=== PATIENT | male | born 1940 | race Caucasian/White ===

== ENCOUNTER → 2016-10-15 13:57 | Outpatient (CLI) | payer MEDICARE | END | disposition home or self-care (01) | LOC: D.MRI 13:57 | DX: M25.512 Pain in left shoulder (principal) ==

== ENCOUNTER → 2016-12-24 15:41 | Outpatient (CLI) | payer MEDICARE | END | disposition home or self-care (01) | LOC: D.LABREF 15:41 | DX: Z80.0 Family history of malignant neoplasm of digestive organs (principal) ==

== ENCOUNTER 2017-10-13 00:55 | Emergency (ER) | payer MEDICARE, BC ==
[~2017-10-13] VITALS: Ht 172.7 cm; Wt 65.8 kg
[2017-10-13 00:57] VITALS: Ht 172.7 cm; Wt 65.8 kg
[2017-10-13] MEDS ORDERED: OMEPRAZOLE40 MG PO (00:58)
[2017-10-13] MEDS ORDERED: PROPECIA1 MG PO (00:58)
[2017-10-13] MEDS ORDERED: NAPROXEN250 MG PO (00:58)
[2017-10-13 01:29] LABS: APPEARANCE HAZY (CLEAR); BILIRUBIN NEGATIVE (NEGATIVE); COLOR YELLOW (YELLOW); GLUCOSE NEGATIVE (NEGATIVE); KETONE SMALL mg/dL (NEGATIVE); NITRITE NEGATIVE (NEGATIVE); PROTEIN NEGATIVE (NEGATIVE); UROBILINOGEN NORMAL (NORMAL)
[2017-10-13 01:30] LABS: BACTERIA NONE SEEN /hpf (NONE SEEN); EPITHELIAL CELLS RARE /hpf (0-5); RED CELLS - URINE 25-50 /hpf (0-5); WHITE CELLS - URINE RARE /hpf (0-5)
[2017-10-13 02:44] VITALS: BP 132/69
== END 2017-10-13 02:50 | disposition home or self-care (01) ==
LOC: D.ER 00:55
PROVIDERS: Emergency Medicine
DX: N23 Unspecified renal colic (principal)

== ENCOUNTER 2017-10-26 01:07 | Emergency (ER) | payer MEDICARE, BC ==
[~2017-10-26] VITALS: Ht 162.6 cm; Wt 65.9 kg
[~2017-10-26 01:07] MED LIST: NAPROXEN250 MG PO; OMEPRAZOLE40 MG PO; PROPECIA1 MG PO
[2017-10-26 01:09] VITALS: Ht 162.6 cm; Wt 65.9 kg
[2017-10-26] MEDS ORDERED: NORCO 7.5/325 T1 TA1 PO (01:55)
[2017-10-26 02:31] VITALS: BP 138/70
== END 2017-10-26 02:31 | disposition home or self-care (01) ==
LOC: D.ER 01:07
DX: M48.32 Traumatic spondylopathy, cervical region (principal); N42.9 Disorder of prostate, unspecified

== ENCOUNTER → 2017-10-28 13:53 | Outpatient (CLI) | payer MEDICARE, BC ==
[2017-10-26 01:09] VITALS: BMI 24.9
[~2017-10-28 13:53] MED LIST changes: +NORCO 7.5/325 T1 TA1 PO
== END | disposition home or self-care (01) ==
LOC: D.MRI 13:53
DX: M54.2 Cervicalgia (principal)

== ENCOUNTER 2017-12-18 05:20 | Inpatient (IN) | payer MEDICARE, BC ==
[2017-12-17 13:33] LABS: BASOPHILS 0.6 % (0-2); EOSINOPHILS 6.1 % (0-7); HEMATOCRIT 40.6 % (42.0-54.0); LYMPHOCYTES 21.5 % (15-50); MCH 31.5 pg (26.0-34.0); MCHC 34.5 g/dL (31.0-37.0); MCV 91.2 fL (80.0-100.0); MEAN PLATELET VOLUME 9.4 fL (7.4-10.4); MONOCYTES 9.3 % (2-11); NEUTROPHILS 62.5 % (40-80); PLATELET COUNT 273 10x3/uL (130-400); RBC 4.45 10x6/uL (4.20-6.10); RDW 14.4 % (11.5-14.5); WBC 8.2 10x3/uL (4.8-10.8)
[2017-12-17 13:51] LABS: INR 1.01 (0.85-1.17); PROTIME 12.9 SECONDS (11.6-15.0)
[2017-12-17 13:52] LABS: APTT 31.7 SECONDS (22.8-39.4)
[2017-12-18] VITALS (19 sets, daily range): BP systolic 103–150; BP diastolic 40–80; BMI 25.8
[~2017-12-18] VITALS: Ht 162.6 cm; Wt 68.2 kg
--- NOTE | ~2017-12-18 | OP ---
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 PROCEDURES: Anterior cervical discectomy and fusion at C4-C5 and C5-C6 with removal of osteophytes. Zavation spine, anterior cervical plate and screws. A separate PEEK interbody cages at C4-C5 and C5-C6. Nayeli bone stem cells. SURGEON: Irina Hernandez MD DESCRIPTION OF TECHNIQUE: After induction of general endotracheal anesthesia, the patient was positioned supine on the operating table. Neck was prepped and draped in the usual sterile fashion. Fluoroscopic x-ray and freer localized the C4-C5 interspace. Next, a transverse skin incision was carried out from the midline to the sternocleidomastoid muscle and using a blunt and sharp dissection with the Metzenbaum scissors, I proceeded in avascular plane medial to the carotid sheath. C4-C5 and C5-C6 interspaces were identified with fluoroscopic x-ray and spinal needle. The longus colli muscles were elevated from bodies of C4, C5 and C6. Osteophytes were drilled away anteriorly with a Midas-Charles drill and Adson rongeurs. Next, a [place] distracting pins were placed by the C4, C5 and C6. Disc space was then incised at each interspace with #11 blade and the disc material was removed with pituitary rongeurs and curettes. Osteophytes were drilled away posteriorly with Midas-Charles drill and microscope. The posterior longitudinal ligament was removed with Cloward rongeurs. At each level, the dura was decompressed well at C4-C5 and C5-C6. PEEK interbody cages were placed at C4-C5 and C5-C6. A separate anterior cervical plate and screws used to span the C4-C5 and C5-C6 interspaces. Locking cams were tightened down over the screw heads. Meticulous hemostasis was maintained throughout the wound. The wound was irrigated with copious amounts of Ancef irrigant solution. The platysma was closed with interrupted 3-0 Vicryl suture. The subdermal layer was closed with interrupted 3-0 Vicryl suture. The skin was reapproximated with Steri-Strips and benzoin. A sterile dressing was applied to the wound. The patient was awakened in good condition and taken to recovery. All counts were reported as correct. Estimated blood loss was minimal. TRANSINT:[id number] Voice Confirmation ID: [id number] DOCUMENT ID: [id number] IRINA HERNANDEZ MD at 1823 CC: [id number] DICTATION DATE: 01/02/18 1319 ATTRACTION ATTENDANT: 01/02/18 1435 DIS IN 12/20/17 [id number] [place] [address]
--- NOTE | ~2017-12-18 | DS ---
PATIENT:MARTA JARVIS :40 MEDICAL RECORD: [id number] DISCHARGE SUMMARY ADMISSION DATE: 12/19/17 DISCHARGE DATE: 12/20/17 DATE OF ADMISSION: 12/20/2017 DATE OF DISCHARGE: 12/21/2017 HOSPITAL COURSE: Mr. Jarvis was admitted as an outpatient for anterior cervical discectomy and fusion. He tolerated the procedure well, was discharged home on the following day. Activity was ad jeanette. DISCHARGE MEDICATIONS: Same as admission medications. He is to return to clinic to see Dr. Hernandez in 1 week. DIET: Regular. TRANSINT:[id number] Voice Confirmation ID: [id number] DOCUMENT ID: [id number] IRINA HERNANDEZ MD CC: [id number] DICTATION DATE: 01/17/18 1105 SENIOR GENETIC COUNSELOR: 01/17/18 2253 DIS IN 12/20/[address] [address]
[~2017-12-18 05:20] MED LIST changes: -PROPECIA1 MG PO; +PROSCAR5 MG PO; +ULTRAM50 MG PO
[2017-12-18 15:45] LABS: BASOPHILS 0.1 % (0-2); EOSINOPHILS 0 % (0-7); HEMATOCRIT 41.2 % (42.0-54.0); HEMOGLOBIN 14.2 g/dL (13.5-17.5); IMMATURE GRANULOCYTES 0.1 % (0-5); LYMPHOCYTES 5.1 % (15-50); MCH 31.3 pg (26.0-34.0); MCHC 34.5 g/dL (31.0-37.0); MCV 90.9 fL (80.0-100.0); MEAN PLATELET VOLUME 9.7 fL (7.4-10.4); MONOCYTES 0.6 % (2-11); NEUTROPHILS 94.1 % (40-80); PLATELET COUNT 275 10x3/uL (130-400); RBC 4.53 10x6/uL (4.20-6.10); RDW 14.4 % (11.5-14.5); WBC 8.9 10x3/uL (4.8-10.8)
[2017-12-18 16:04] LABS: ALKALINE PHOSPHATASE 83 U/L (46-116); ALT (SGPT) 20 U/L (10-68); BILIRUBIN - TOTAL 0.59 mg/dL (0.2-1.3); CALC OSMOLALITY 278 mosm/kg (275-300); CALCIUM 8.7 mg/dL (8.5-10.1); CARBON DIOXIDE 24.3 mmol/L (21.0-32.0); CHLORIDE - SERUM 104 mmol/L (98-107); CREATININE - SERUM 0.8 mg/dL (0.6-1.3); GLUCOSE 137 mg/dL (74-106); POTASSIUM - SERUM 4.4 mmol/L (3.5-5.1); PROTEIN - SERUM 6.3 g/dL (6.4-8.2); SODIUM 138 mmol/L (136-145); UREA NITROGEN 16 mg/dL (7-18); eGFR NON AFRICAN AMERICAN > 90 mL/min (90-120)
[2017-12-19] VITALS (22 sets, daily range): BP systolic 92–144; BP diastolic 56–105; Ht 162.6 cm; Wt 68.2 kg
[2017-12-19 05:30] LABS: BASOPHILS 0 % (0-2); EOSINOPHILS 0 % (0-7); HEMATOCRIT 42.5 % (42.0-54.0); HEMOGLOBIN 14.8 g/dL (13.5-17.5); IMMATURE GRANULOCYTES 0.4 % (0-5); LYMPHOCYTES 5.4 % (15-50); MCH 31.5 pg (26.0-34.0); MCHC 34.8 g/dL (31.0-37.0); MCV 90.4 fL (80.0-100.0); MEAN PLATELET VOLUME 9.6 fL (7.4-10.4); MONOCYTES 3.3 % (2-11); NEUTROPHILS 90.9 % (40-80); PLATELET COUNT 294 10x3/uL (130-400); RDW 14.2 % (11.5-14.5); WBC 14.5 10x3/uL (4.8-10.8)
[2017-12-19 05:43] LABS: ALKALINE PHOSPHATASE 78 U/L (46-116); ALT (SGPT) 16 U/L (10-68); BILIRUBIN - TOTAL 0.58 mg/dL (0.2-1.3); CALC OSMOLALITY 279 mosm/kg (275-300); CALCIUM 9.2 mg/dL (8.5-10.1); CHLORIDE - SERUM 106 mmol/L (98-107); CREATININE - SERUM 0.7 mg/dL (0.6-1.3); GLUCOSE 145 mg/dL (74-106); POTASSIUM - SERUM 4.1 mmol/L (3.5-5.1); SODIUM 138 mmol/L (136-145); UREA NITROGEN 14 mg/dL (7-18); eGFR NON AFRICAN AMERICAN > 90 mL/min (90-120)
[2017-12-20] VITALS: BP 136/76
[2017-12-20 01:00] VITALS: BP 126/73
[2017-12-20 02:00] VITALS: BP 145/75
[2017-12-20 03:00] VITALS: BP 124/81
[2017-12-20 06:12] LABS: BASOPHILS 0.1 % (0-2); EOSINOPHILS 0 % (0-7); HEMATOCRIT 42.9 % (42.0-54.0); IMMATURE GRANULOCYTES 0.4 % (0-5); LYMPHOCYTES 2.4 % (15-50); MCH 31.8 pg (26.0-34.0); MCV 91.1 fL (80.0-100.0); MONOCYTES 5.9 % (2-11); NEUTROPHILS 91.2 % (40-80); RBC 4.71 10x6/uL (4.20-6.10); RDW 14.3 % (11.5-14.5)
[2017-12-20 06:25] LABS: PLATELET COUNT 353 10x3/uL (130-400)
[2017-12-20 06:58] LABS: ALBUMIN 3.2 g/dL (3.4-5.0); ALKALINE PHOSPHATASE 83 U/L (46-116); ALT (SGPT) 12 U/L (10-68); BILIRUBIN - TOTAL 0.47 mg/dL (0.2-1.3); CALC OSMOLALITY 286 mosm/kg (275-300); CARBON DIOXIDE 20.3 mmol/L (21.0-32.0); CHLORIDE - SERUM 107 mmol/L (98-107); CREATININE - SERUM 0.8 mg/dL (0.6-1.3); GLUCOSE 148 mg/dL (74-106); POTASSIUM - SERUM 3.8 mmol/L (3.5-5.1); PROTEIN - SERUM 7.3 g/dL (6.4-8.2); SODIUM 141 mmol/L (136-145); eGFR NON AFRICAN AMERICAN > 90 mL/min (90-120)
[2017-12-20 07:00] VITALS: BP 124/80
[2017-12-20 07:00] LABS: UREA NITROGEN 20 mg/dL (7-18)
[2017-12-20 11:00] VITALS: BP 122/80
== END 2017-12-20 17:11 | disposition home or self-care (01) | DRG 472 ==
LOC: D.OPS 05:20 → D.CVICU 05:20 → D.OPS 07:30 → D.PAN 07:30 → D.CVICU 10:32 → D.OPS 12-19 11:51 → D.CVICU 12-19 11:52
PROVIDERS: Anesthesiology; Family Medicine
PROC: 0RB30ZZ Excision of Cervical Vertebral Disc, Open Approach (ICD-10-PCS; principal; 2017-12-19)
PROC: 0RG10A0 Fusion of Cervical Vertebral Joint with Interbody Fusion Device, Anterior Approach, Anterior Column, Open Approach (ICD-10-PCS; 2017-12-19)
DX: M50.021 Cervical disc disorder at C4-C5 level with myelopathy (principal); N13.8 Other obstructive and reflux uropathy; K21.9 Gastro-esophageal reflux disease without esophagitis; F41.9 Anxiety disorder, unspecified; N40.1 Benign prostatic hyperplasia with lower urinary tract symptoms; R20.2 Paresthesia of skin; H35.30 Unspecified macular degeneration; H91.90 Unspecified hearing loss, unspecified ear; Z85.46 Personal history of malignant neoplasm of prostate; Z85.828 Personal history of other malignant neoplasm of skin; R26.89 Other abnormalities of gait and mobility